=== PATIENT | female | born 1990 | race Caucasian/White ===

== ENCOUNTER 2016-08-13 15:00 | Emergency (ER) | payer OTHER ==
[2016-08-13 15:30] VITALS: BP 122/71
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
--- NOTE | 2016-08-25 20:49 | UC ---
Lower Extremity/Ankle HPI - HPI Summary HPI Summary: tripped and fell last night injured right foot increase pain with WB - History of Current Complaint Chief Complaint: UCLowerExtremity Stated Complaint: FOOT INJURY Time Seen by Provider: 08/13/16 15:06 Hx Obtained From: Patient Hx Last Menstrual Period: ON DEPO - NO PERIODS ?: No Onset/Duration: Sudden Onset, Lasting Days Severity Initially: Moderate Severity Currently: Moderate Pain Intensity: 10 Pain Scale Used: 0-10 Numeric Aggravating Factor(s): Standing, Ambulation Alleviating Factor(s): Rest, Elevation Able to Bear Weight: Yes - with pain - Allergies/Home Medications Allergies/Adverse Reactions: Allergies Allergy/AdvReac Type Severity Reaction Status Date / Time No Known Allergies Allergy Verified 08/07/15 14:31 PMH/Surg Hx/FS Hx/Imm Hx Previously Healthy: Yes Endocrine History Of: Denies: Diabetes, Thyroid Disease Cardiovascular History Of: Denies: Cardiac Disorders, Hypertension, Pacemaker/ICD Respiratory History Of: Denies: COPD, Asthma GI/ History Of: Denies: Ulcer - Surgical History Surgical History: None - Family History Known Family History: Positive: None, Unknown - Social History Occupation: Employed Full-time Lives: With Family Alcohol Use: Weekly Alcohol Amount: weekends Substance Use Type: None Smoking Status (MU): Current Every Day Smoker Type: Cigarettes Amount Used/How Often: 1 PPD Length of Time of Smoking/Using Tobacco: 10 years Have You Smoked in the Last Year: Yes - Immunization History Most Recent Tetanus Shot: does not recall Review of Systems Constitutional: Negative Skin: Negative Eyes: Negative ENT: Negative Respiratory: Negative Cardiovascular: Negative Gastrointestinal: Negative Genitourinary: Negative Motor: Decreased ROM - right foot Neurovascular: Negative Musculoskeletal: Arthralgia - right foot Neurological: Negative Psychological: Negative All Other Systems Reviewed And Are Negative: Yes Physical Exam Triage Information Reviewed: Yes Appearance: Well-Appearing, No Pain Distress, Well-Nourished Vital Signs: Initial Vital Signs Temp 97.3 F 08/13/16 15:24 Pulse 99 08/13/16 15:24 Resp 18 08/13/16 15:24 BP 122/71 08/13/16 15:24 Pulse Ox 100 08/13/16 15:24 Vital Signs Reviewed: Yes Eye Exam: Normal Eyes: Positive: Conjunctiva Clear ENT Exam: Normal ENT: Positive: Normal ENT inspection, Hearing grossly normal, Pharynx normal. Negative: Nasal congestion, Nasal drainage, Trismus, Muffled/hoarse voice Neck exam: Normal Neck: Positive: Supple, Nontender Respiratory Exam: Normal Respiratory: Positive: Chest non-tender, Lungs clear, Normal breath sounds, No respiratory distress, No accessory muscle use Cardiovascular Exam: Normal Cardiovascular: Positive: RRR, No Murmur, Pulses Normal, Brisk Capillary Refill Musculoskeletal Exam: Other Musculoskeletal: Positive: ROM Intact, No Edema, Strength Limited @ - right foot Neurological Exam: Normal Neurological: Positive: Alert Psychological Exam: Normal Psychological: Positive: Normal Response To Family Skin Exam: Normal Diagnostics - Laboratory Diagnostic Studies Completed/Ordered: u preg (-) - Radiology No standard instances Xray Interpretation: No Acute Changes Radiology Interpretation Completed By: ED Physician, Radiologist Lower Extremity Course/Dx - Course Course Of Treatment: cam,syed, crutches, rice, follow with ortho re-check prn - Differential Dx/Diagnosis Differential Diagnosis/HQI/PQRI: Contusion, Fracture (Closed), Sprain, Strain Provider Diagnoses: Contusion right foot Discharge - Discharge Plan Condition: Stable Disposition: HOME Patient Education Materials: Ibuprofen (By mouth), Crutch Instructions (ED), Foot Contusion (ED), RICE Therapy (ED) Forms: *Work Release Referrals: Lovely Lynn MD [Primary Care Provider] - If Needed
== END 2016-08-13 16:29 | disposition home or self-care (01) ==
LOC: UCEAST 15:00
DX: S90.31XA Contusion of right foot, initial encounter (principal); W01.0XXA Fall on same level from slipping, tripping and stumbling without subsequent striking against object, initial encounter; Y93.9 Activity, unspecified; Y92.9 Unspecified place or not applicable; Z32.02 Encounter for pregnancy test, result negative; F17.210 Nicotine dependence, cigarettes, uncomplicated
CPT/HCPCS: 81025; 99213; G0463

== ENCOUNTER 2016-11-13 15:14 | Emergency (ER) | payer OTHER ==
[2016-11-13 15:41] VITALS: BP 149/92
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
[2016-11-13] MEDS ORDERED: HYDROcodone/ACETAMIN 5-325 MG* 1 TAB PO ONE (16:29)
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
== END 2016-11-13 17:45 | disposition home or self-care (01) ==
LOC: UCEAST 15:14
DX: S20.212A Contusion of left front wall of thorax, initial encounter (principal); S20.222A Contusion of left back wall of thorax, initial encounter; Y09 Assault by unspecified means; Y93.9 Activity, unspecified; Y92.9 Unspecified place or not applicable; F17.210 Nicotine dependence, cigarettes, uncomplicated
CPT/HCPCS: 72050; 99212; G0463

== ENCOUNTER 2017-11-17 15:50 | Emergency (ER) | payer SELFPAY ==
[2017-11-17 16:49] VITALS: BP 106/68
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
[2017-11-17] MEDS ORDERED: Ibuprofen TAB* 400 MG PO ONE (18:15)
[2017-11-17] MEDS ORDERED: Amoxicillin PO (*) 500 MG CAP PO ONE (18:16)
== END 2017-11-17 18:32 | disposition home or self-care (01) ==
LOC: UCEAST 15:50
DX: H66.91 Otitis media, unspecified, right ear (principal); H60.501 Unspecified acute noninfective otitis externa, right ear; F17.210 Nicotine dependence, cigarettes, uncomplicated
CPT/HCPCS: 99212; A9270-GY; G0463

== ENCOUNTER 2018-01-10 12:47 | Emergency (ER) | payer MEDICAID ==
[2018-01-10 14:09] VITALS: BP 120/66
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
== END 2018-01-10 15:15 | disposition home or self-care (01) ==
LOC: UCEAST 12:47
DX: O26.891 Other specified pregnancy related conditions, first trimester (principal); R10.11 Right upper quadrant pain; Z3A.08 8 weeks gestation of pregnancy; Z80.3 Family history of malignant neoplasm of breast; Z87.891 Personal history of nicotine dependence
CPT/HCPCS: 76817; 99211; G0463

== ENCOUNTER 2018-08-20 01:35 | Inpatient (IN) | payer OTHER ==
[2018-08-20] MEDS ORDERED: Nalbuphine* 10 MG/ML 1 ML VIAL IV ONE (02:21)
[2018-08-20] MEDS ORDERED: Lactated Ringers 1000 ML Bag* 1,000 ML IV ONE ×2 (02:21→11:52)
[2018-08-20] MEDS ORDERED: Promethazine INJ(RESTRICTED)* 25 MG/ML 1 ML VIAL IV ONE (02:21)
--- NOTE | 2018-08-20 02:33 | HP ---
General Information - Reason for Visit @ 40+3 admitted for labor, marycarmen q2-6 minutes - General Information Maternal Age: 27 Grav: 1 Para: 0 SAB: 0 IEA: 0 Estimated Due Date: 08/17/18 Determined By: LMP Gestational Age in Weeks/Days: 40+3 Maternal Blood Type and Rh: O Positive - Results this Serology/RPR Result: Non-Reactive Rubella Result: Immune HBsAg Result: Negative HIV Result: Negative GBS Culture Result: Negative Past Medical History - Antepartal Records Antepartal Records: Reviewed, Complicated by: - THC use, tobacco use Review of Systems Constitutional: Uncomfortable CV Complaint: No Respiratory: Shortness of Breath: No Gastrointestinal: No Nausea/Vomiting Genitourinary: No Dysuria, No Bleeding, No Leaking Fluid Musculoskeletal: Contractions Neurological: No Headache, No Visual Changes Movement: Normal Exam Allergies/Adverse Reactions: Allergies No Known Allergies Allergy (Verified 08/20/18 01:44) Vital Signs 08/20/18 02:22 Temperature 97.7 F Pulse Rate 73 Respiratory 20 Rate Blood Pressure 132/75 (mmHg) O2 Sat by Pulse 100 Oximetry - Measurements Height: 5 ft 5 in Weight: 205 lb Weight in lbs: [phone] Body Mass Index (BMI): 34.1 Pre- Weight: 180 lb Weight Gained This : 25 lbs and 0 ozs - Exam Breast: Breast Exam Deferred CVA: No CVA Tenderness Extremities: No Edema Heart: Normal Rhythm/Heart Sounds HEENT: No Significant Findings Lungs: Clear Bilaterally Rectal: Rectal Exam Deferred Reflexes: DTR 2+ Thyroid: No Thyromegaly - Abdominal Exam Abdomen Exam: Non-Tender - Ultrasound/Biophysical Profile Ultrasound Status: Not Done Targeted Exam Findings Cervical Exam: 2cm Effacement: 90% Station: -1 Presenting Part: Vertex Membrane Status: Intact - RN exam Bleeding/Discharge: Bloody Show EFM Findings - External Monitor Findings Baseline Heart Rate: 130 External Monitor Findings: Accelerations Present, No Pattern of Variable or Late Decelerations, Variability Moderate, Baseline Stable Contractions: Regular, Mild, Moderate, >90 Seconds Assessment/Plan - Assessment A: 27 yo, , @40+3 in labor FHT reassuring - baseline 130, +accels Contractions q2-6, palpate moderate GBS negative No significant medical hx Social hx significant for tobacco and THC use course complicated by hx of low lying placenta that resolved P: Admit to L&D Anticipate progression to - Plan Plan: Admit - Anticipate Vaginal Delivery - Date/Time of Admission Date of Admission: 08/20/18 Time of Admission: 02:45
[2018-08-20 02:38] LABS: ABS Basophils 0 10^3/ul (0-0.2); ABS Eosinophils 0.1 10^3/ul (0-0.6); ABS Monocytes 0.6 10^3/ul (0-0.8); ABS Neutrophils 8.7 10^3/ul (1.5-7.7); ABS Nucleated RBC 0 10^3/ul; Eosinophil % 0.7 %; Hematocrit 39 % (35-47); Hemoglobin 12.9 g/dl (12.0-16.0); Lymphocyte % 17.2 %; Mean Corpuscular HGB Conc 33 g/dl (31-36); Mean Corpuscular Hemoglobin 30 pg (27-31); Mean Corpuscular Volume 90 fL (80-97); Mean Platelet Volume 8.6 fL (7.4-10.4); Nucleated Red Blood Cells % 0; Platelet Count 199 10^3/ul (150-450); Red Cell Distribution Width 14 % (10.5-15); White Blood Count 11.4 10^3/ul (3.5-10.8)
[2018-08-20] MEDS ORDERED: Lactated Ringers 1000 ML Bag* 1,000 ML IV SCH ×2 (03:00→12:00)
--- NOTE | 2018-08-20 06:41 | PN ---
Progress Note - Progress Note Date of Service: 08/20/18 Note: S: @40+3 in early labor. Reports feeling irregular contractions at this time. +FM. O: FHR via auscultation 125 BPM. Pt resting comfortably after Phenergan and Nubain. A/P: Vaginal exam deferred at this time. Anticipate progression to .
--- NOTE | 2018-08-20 09:33 | PN ---
Progress Note - Progress Note Date of Service: 08/20/18 SOAP: Subjective: Pt lying in bed, breathing through ctx,. appears to be coping well. pt reports ctx are more painful than they were, and she feels as though medicine has worn off. She reports she slept overnight. Declines cervical exam at this time. Objective: FHR baseline 135, + accels, no decels, moderate variability UCs 2-5 minutes apart, 60-90 seconds BP mildly elevated at 131/73, afebrile Membranes intact Assessment: 27 year old in early to active labor, membranes intact, coping well, with no evidence of acidemia. Plan: Pt wishes to labor in tub for now, interested in an epidural at some point. Declines cervical exam at this time. Will check cervix when pt is ready. Continue expectant management at this time.
--- NOTE | 2018-08-20 10:50 | PN ---
Progress Note - Progress Note Date of Service: 08/20/18 SOAP: Subjective: Pt out of tub, lying in bed, increasingly uncomfortable. Declines epidural at this time, considering. Coping well, family at bedside, supportive. Objective: FHR- 150 per doppler UCs-2-3 minutes, lasting 60-80 seconds, moderate to strong Cervix: 5cm/ 100%/ 0 station with a bulging bag of ocampo Assessment: 27 year old at 40 3/7 weeks gestation in active labor, membranes intact, no evidence of acidemia. Plan: Continue expectant management. Epidural if desired by pt. Anticipate .
[2018-08-20] MEDS ORDERED: OBEPIDURAL* 250 ML EPIDURAL ONE (11:23)
[2018-08-20] MEDS ORDERED: EPHEDrine (Pressors)* 50 MG/ML VIAL IV PUSH PRN ×2 (11:52)
[2018-08-20] MEDS ORDERED: Famotidine TAB* 20 MG PO PRN (11:52)
[2018-08-20] MEDS ORDERED: Phenylephrine IV* 40 MCG/ML 10 ML SYRINGE IV PUSH PRN ×2 (11:52)
[2018-08-20] MEDS ORDERED: Lactated Ringers 1000 ML Bag* 500 ML IV PRN ×2 (11:52)
[2018-08-20] MEDS ORDERED: Sodium Citrate/Citric Acid* 15 ML UDC PO PRN (11:52)
[2018-08-20] MEDS ORDERED: OBEPIDURAL* 250 ML EPIDURAL SCH (12:00)
--- NOTE | 2018-08-20 12:12 | PN ---
Progress Note - Progress Note Date of Service: 08/20/18 SOAP: Subjective: Pt comfortable with epidural, taking a nap. Objective: FHR 145/ no accels/ single isolated variable decel/ moderate variability UCs: 1-5 minutes, 60-90 seconds Vital signs stable Cervical exam deferred Assessment: 27 year old in active labor, comfortable with epidural Plan: Continue expectant management, continuous FM Anticipate
[2018-08-20 12:54] LABS: Barbiturates Urine Screen None Detected (None Detect); Benzodiazepine Urine Screen None Detected (None Detect); Urine Cannabinoids Screen None Detected (None Detect)
--- NOTE | 2018-08-20 14:06 | PN ---
Progress Note - Progress Note Date of Service: 08/20/18 SOAP: Subjective: Pt sleeping on left side, appears comfortable. Objective: FHR baseline 145, moderate variability, no accels, no decels UCs 3-5 minutes, 60-90 seconds duration Cervical exam deferred BP 119/72 Assessment: 27 year old in active labor, no evidence of acidemia, comfortable and resting with epidural. Plan: Continue expectant management. When pt wakes will perform cervical exam if she is willing to evaluate labor progress.
--- NOTE | 2018-08-20 16:24 | PN ---
Progress Note - Progress Note Date of Service: 08/20/18 SOAP: Subjective: Pt reports back pain with ctx. Was feeling some pressure, relieved with SROM. Pt refusing cervical exam at this time. Objective: SROM occurred to clear fluid. FHR 145, moderate variability, no decels, positive accels UCs 2-5 minutes Assessment: 27 year old in active labor at 40 3/7 weeks gestation, membranes ruptured, no evidence of acidemia Plan: Pt strongly prefers to defer cervical exam at this time. Given SROM and reported changes in sensations, pt likely continuing to progress. If no urge to push in the next 1-2 hours will encourage pt to permit cervical exam in order to assess progress.
--- NOTE | 2018-08-20 17:10 | PN ---
Progress Note - Progress Note Date of Service: 08/20/18 SOAP: Subjective: Pt still reports back pain with ctx, using bolus button, coping well. Objective: Cervix: 8cm/ 0 station/ vtx/ 100% FHR: Baseline 145, +accels, no decels, moderate variability Clear fluid UCs: 2-6 minutes, 40-80 seconds Assessment: 27 year old at 40 3/7 weeks gestation in active labor at 8cm, membranes ruptured, no evidence of acidemia. Plan: Continue expectant management. Plan to recheck cervix in 1-2 hours unless pt feels urge to push sooner. Anticipate .
--- NOTE | 2018-08-20 20:07 | PN ---
Progress Note - Progress Note Date of Service: 08/20/18 SOAP: Subjective: Pt with more pressure, back pain. Objective: Cervical exam: anterior lip/ +1/ vtx FHR 145/ moderate variability/ no accels/ no decels UCs Q2-5 minutes, 40-80 seconds Temp 99.4, BP-117/58 Clear fluid Assessment: 27 year old at 40 3/7 weeks gestation in active labor, almost ready to start pushing. Plan: Will start pushing once pt fully dilated. Anticipate .
[2018-08-20] MEDS ORDERED: Oxytocin in LR* 20 UNITS/1,000 ML BAG IVPB ONE (20:25)
--- NOTE | 2018-08-20 21:13 | PN ---
Progress Note - Progress Note Date of Service: 08/20/18 SOAP: Subjective: After recommending pitocin augmentation to pt she initially declined, but now states that she is willing to accept augmentation. She remains uncomfortable but without strong urge to push. Objective: FHR: baseline 145, moderate variability, + accels, no decels UCs: Q 7 minutes Cervical exam deferred Assessment: 27 year old at 40 3/7 weeks gestation, no evidence of acidemia Ctx spaced out Plan: Initiate low dose Pitocin at 2 mu/ min Will start pushing soon. Anticipate .
[2018-08-20] MEDS ORDERED: Oxytocin in LR* 20 UNITS/1,000 ML BAG IVPB SCH (22:00)
[2018-08-21] MEDS ORDERED: Acetaminophen TAB* 325 MG PO PRN (00:03)
[2018-08-21] MEDS ORDERED: Witch Hazel PAD* JAR TOPICAL PRN (00:03)
[2018-08-21] MEDS ORDERED: Dibucaine 1% 28.35 GM TUBE PR PRN (00:03)
[2018-08-21] MEDS ORDERED: Glycerin ADULT SUPP PR PRN (00:03)
--- NOTE | 2018-08-21 00:19 | PROCNOTE ---
[facility] OB: Delivery Note - Delivery A Date of : 08/20/18 Time of : 22:34 [place] Sex: Female Weight at : 3.205 kg Score 1 Minute: 9 Score 5 Minutes: 9 Gestational Age in Weeks and Days at Delivery: 40 Weeks and 3 Days Delivery Method: Spontaneous Vaginal Labor: Spontaneous Did Patient attempt ?: N/A, No Previous Amniotic Fluid: Clear Estimated Blood Loss: 200 Anesthesia/Analgesia: CEI for Labor Delivered By: Brooklynn Brown Nursery Level of Nursery: Regular/Bedside - Perineum Perineal Injury: 2nd Degree Perineal Repair: By Delivering Practioner - Events Delivery Events of Note: Pitocin During Labor - Additional Delivery Notes Additional Delivery Notes: Pt arrived on labor and delivery unit in early labor. She received therapeutic rest with Nubain and Phenergan and slept. After waking pt initially used tub and position changes for pain relief. As labor progressed pt became more uncomfortable and requested and received an epidural with good relief. Pt continued to make steady progress throughout the day. After pt achieved full dilation contractions spaced out and Pitocin augmentation initiated after pt agreed. Soon after starting Pitocin, pt began to feel urge to push, and started pushing with coaching. Pt pushed effectively with steady descent. Pt brought infant to and then birthed the head OA to BERE. Shoulders followed easily, and nuchal cord x1 loop, plus cord wrapped around chest x1 were reduced immediately after delivery. Pt was very overwhelmed after the and requested that infant not be placed skin to skin. RN held above pt's abdomen and dried and stimulated her. with vigorous cry, FHR > 100. After cord pulsation ceased, cord clamped x2 and cut by pt's grandmother. Placenta delivered, pelon side with trailing membranes, teased out with kayley clamp. Fundus firm with minimal bleeding. Pitocin increased to 250 cc/ hr. Examination of the perineum revealed small second degree laceration, sutured, resulting in good hemostasis and tissue approximation. Pt and stable at this time, anticipate normal course.
[2018-08-21] MEDS ORDERED: Oxytocin in LR* 20 UNITS/1,000 ML BAG IVPB SCH (01:00)
[2018-08-21] MEDS ORDERED: Lactated Ringers 1000 ML Bag* 1,000 ML IV SCH (01:00)
[2018-08-21] MEDS: Ibuprofen TAB* 600 MG PO PRN ×4 (02:39→20:22)
[2018-08-21] MEDS: Docusate CAP* 100 MG PO SCH ×3 (08:42→20:22)
[2018-08-22] MEDS: Ibuprofen TAB* 600 MG PO PRN (07:52)
[2018-08-22] MEDS: Docusate CAP* 100 MG PO SCH (07:52)
[2018-08-22 08:12] LABS: ABS Basophils 0.1 10^3/ul (0-0.2); ABS Eosinophils 0.1 10^3/ul (0-0.6); ABS Lymphocytes 2.4 10^3/ul (1.0-4.8); ABS Monocytes 0.8 10^3/ul (0-0.8); ABS Neutrophils 8.6 10^3/ul (1.5-7.7); ABS Nucleated RBC 0 10^3/ul; Eosinophil % 0.9 %; Hematocrit 36 % (35-47); Hemoglobin 11.9 g/dl (12.0-16.0); Lymphocyte % 20.3 %; Mean Corpuscular HGB Conc 33 g/dl (31-36); Mean Corpuscular Hemoglobin 30 pg (27-31); Mean Corpuscular Volume 91 fL (80-97); Mean Platelet Volume 8.3 fL (7.4-10.4); Nucleated Red Blood Cells % 0; Platelet Count 191 10^3/ul (150-450); Red Blood Count 3.92 10^6/ul (4.00-5.40); Red Cell Distribution Width 14 % (10.5-15)
[2018-08-22] MEDS ORDERED: Ferrous Gluconate TAB* 324 MG TAB PO SCH (09:00)
--- NOTE | 2018-08-22 11:14 | PN ---
Progress Note - Progress Note Date of Service: 08/22/18 Note: 2 PP: Feels well, ready for discharge. Voiding, ambulating without difficulty. Formula feeding. Passing flatus VSS, afebrile. Br soft, FF, scant flow. Perineum: no edema, sutures intact Social work report noted Discharge instructions reviewed including breast care for engorgement. Rx for ibuprofen and nupercainal ointment sent Plan discharge today, f/u in 4-6 wks/prn
[2018-08-22 11:55] VITALS: BP 128/73
== END 2018-08-22 13:49 | disposition home or self-care (01) | DRG 560 ==
LOC: MCHOBOUT 01:35 → MCHOB 01:58
PROVIDERS: ADMIT Advanced Practice Midwife; ATTEND Midwife
PROC: 10E0XZZ Delivery of Products of Conception, External Approach (ICD-10-PCS; principal; 2018-08-20)
PROC: 4A1HXCZ Monitoring of Products of Conception, Cardiac Rate, External Approach (ICD-10-PCS; 2018-08-20)
PROC: 0KQM0ZZ Repair Perineum Muscle, Open Approach (ICD-10-PCS; 2018-08-20)
DX: O48.0 Post-term pregnancy (principal); O99.324 Drug use complicating childbirth; Z37.0 Single live birth; O99.334 Smoking (tobacco) complicating childbirth; F12.90 Cannabis use, unspecified, uncomplicated; F17.200 Nicotine dependence, unspecified, uncomplicated; O69.81X0 Labor and delivery complicated by cord around neck, without compression, not applicable or unspecified; Z3A.40 40 weeks gestation of pregnancy; O70.1 Second degree perineal laceration during delivery
CPT/HCPCS: 36415; 80307; 85025; 86850; 86900; 86901; A9270-GY; J2300; J2550

== ENCOUNTER 2019-03-16 03:20 | Emergency (ER) | payer MEDICAID, OTHER ==
[2019-03-16] MEDS ORDERED: Lidocaine 2% EPI 1:200000 MPF* 10 ML VIAL INJ ONE (03:35)
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
[2019-03-16] MEDS: Ibuprofen TAB* 400 MG PO ONE ×2 (03:43→04:31)
[2019-03-16] MEDS ORDERED: Lidocaine 2% w/ EPI 1:200,000* 20 ML SDV VIAL INJ ONE (04:00)
[2019-03-16 04:50] VITALS: BP 110/81
== END 2019-03-16 04:49 | disposition home or self-care (01) ==
LOC: ED 03:20
DX: S21.212A Laceration without foreign body of left back wall of thorax without penetration into thoracic cavity, initial encounter (principal); F10.929 Alcohol use, unspecified with intoxication, unspecified; F17.210 Nicotine dependence, cigarettes, uncomplicated; W45.8XXA Other foreign body or object entering through skin, initial encounter; Y92.9 Unspecified place or not applicable
CPT/HCPCS: 12002; 71045; 99282; A9270-GY

== ENCOUNTER 2019-03-24 23:48 | Emergency (ER) | payer MEDICAID, OTHER ==
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
[2019-03-25] MEDS ORDERED: Hydrocortisone 2.5% CREAM(NF) 30 GM TUBE TOPICAL ONE (02:34)
[2019-03-25] MEDS ORDERED: Hydrocortisone 1% CREAM* 30 GM TUBE TOPICAL ONE (02:34)
[2019-03-25 02:57] VITALS: BP 117/80
[2019-03-25] MEDS ORDERED: Hydrocortisone 2.5% CREAM(NF) 30 GM TUBE TOPICAL SCH (09:00)
== END 2019-03-25 02:55 | disposition home or self-care (01) ==
LOC: ED 23:48
DX: L30.8 Other specified dermatitis (principal); S21.212D Laceration without foreign body of left back wall of thorax without penetration into thoracic cavity, subsequent encounter; W26.9XXD Contact with unspecified sharp object(s), subsequent encounter; F17.210 Nicotine dependence, cigarettes, uncomplicated
CPT/HCPCS: 99282; A9270-GY